=== PATIENT | male | born 1945 | race Native Hawaiian/Other Pacific Islander ===

== ENCOUNTER 2016-12-16 07:52 | Outpatient (CLI) | payer OTHER ==
[~2016-12-16 07:52] MED LIST: ACET7.5T70 PO; BENA20TA2 PO; METO50TA27 PO; OMEP20CA PO; ROSU10TA PO
[2016-12-16 08:17] LABS: PLATELET COUNT 223 K/uL (142-355)
== END 2016-12-16 19:06 | disposition home or self-care (01) ==
LOC: LABW 07:52
PROVIDERS: Family Medicine
DX: I10 Essential (primary) hypertension (principal); N28.89 Other specified disorders of kidney and ureter; E78.4 Other hyperlipidemia; E55.9 Vitamin D deficiency, unspecified; K21.9 Gastro-esophageal reflux disease without esophagitis
CPT/HCPCS: 36415; 80053; 80061; 81000; 82043; 82306; 82570; 83735; 84439; 84443; 84550; 85027

== ENCOUNTER → 2017-06-21 | Day surgery (SDC) | payer OTHER | LOC: OR 07:45 | PROC: 0DJD8ZZ Inspection of Lower Intestinal Tract, Via Natural or Artificial Opening Endoscopic (ICD-10-PCS; principal; 2017-06-21) | DX: K64.8 Other hemorrhoids (principal); Z86.010 Personal history of colon polyps; Z98.890 Other specified postprocedural states; Z87.898 Personal history of other specified conditions; Z12.11 Encounter for screening for malignant neoplasm of colon | CPT/HCPCS: J0461; J2001; J2250; J2704; J3010; J3490 ==

== ENCOUNTER 2017-11-09 12:25 | Outpatient (CLI) | payer OTHER | END 2017-11-09 19:22 | disposition home or self-care (01) | LOC: RAD 12:25 | DX: S89.91XA Unspecified injury of right lower leg, initial encounter (principal) ==

== ENCOUNTER 2018-03-27 11:53 | Outpatient (CLI) | payer OTHER | END 2018-03-27 22:28 | disposition home or self-care (01) | LOC: RAD 11:53 | DX: M25.562 Pain in left knee (principal) ==

== ENCOUNTER 2019-08-24 17:29 | Outpatient (CLI) | payer OTHER | END 2019-08-24 22:18 | disposition home or self-care (01) | LOC: LAB 17:29 | DX: R19.7 Diarrhea, unspecified (principal); F41.8 Other specified anxiety disorders | CPT/HCPCS: 82272; 87015; 87045; 87324; 87328; 87329; 87449; 87899 ==

== ENCOUNTER 2022-08-18 14:07 | Outpatient (CLI) | payer OTHER | END 2022-08-18 23:26 | disposition home or self-care (01) | LOC: RAD 14:07 | PROVIDERS: ATTEND Family Medicine | DX: I10 Essential (primary) hypertension (principal); N28.89 Other specified disorders of kidney and ureter; I49.8 Other specified cardiac arrhythmias | CPT/HCPCS: 93005 ==

== ENCOUNTER 2023-06-20 11:42 | Outpatient (CLI) | payer OTHER | END 2023-06-20 21:56 | disposition home or self-care (01) | LOC: RAD 11:42 | PROVIDERS: ATTEND Family Medicine | DX: I10 Essential (primary) hypertension (principal); E11.9 Type 2 diabetes mellitus without complications; R41.82 Altered mental status, unspecified | CPT/HCPCS: 93005 ==